=== PATIENT | male | born 1965 | race Caucasian/White ===

== ENCOUNTER 2021-06-13 09:58 | Outpatient (RCR) | payer OTHER, SELFPAY ==
--- NOTE | 2021-06-21 13:35 | HP.FCE ---
Floor (Occasional 1-33% of Day): 70# Floor (Frequent 34-66% of Day): 35# Floor (Constant 67-100% of Day): NA Floor PDL: Medium-Heavy Knee (Occasional 1-33% of Day): 75# Knee (Frequent 34-66% of Day): 38# Knee (Constant 67-100% of Day): NA Knee PDL: Medium-Heavy Waist (Occasional 1-33% of Day): 60# Waist (Frequent 34-66% of Day): 30# Waist (Constant 67-100% of Day): NA Waist PDL: Medium Shoulder (Occasional 1-33% of Day): 60# Shoulder (Frequent 34-66% of Day): 30# Shoulder (Constant 67-100% of Day): NA Shoulder PDL: Medium Overhead (Occasional 1-33% of Day): 40# Overhead (Frequent 34-66% of Day): 20# Overhead (Constant 67-100% of Day): NA Overhead PDL: Light-Medium Comments: pain increase with activity Bending: Frequent Ability (34-66% of day) Squatting: Frequent Ability (34-66% of day) Kneeling: Occasional Ability (1-33% of day) Reaching out: Frequent Ability (34-66% of day) Reaching up: Frequent Ability (34-66% of day) Sitting: Frequent Ability (34-66% of day) Walking: Frequent Ability (34-66% of day) Standing: Frequent Ability (34-66% of day) Duration Sedentary Sedentary Light Light Light Medium Medium Medium Heavy Very Heavy Heavy Occasional (0-33% of day) Frequent (34-66% of day) Constant (67-100% of day) 10 # Negligible Negligible 15 # 8 # Negligible 20 # 10# Negli. 35 # 18 # 7 # 50 # 25 # 10 # 75 # 100 # >100 # 38 # 50 # >50 # 15 # 20 # >20 # Weight:: 88.451 kg Hand Dominance: right Medical History Including Restrictions: Pt states he was in good health until about a year or year and a half ago when he was dx with COPD. pt dx with COPD about a year and a half ago and smokes and also smokes-. pt dx with generalized osteoarthrosis also dx about a year and a half a go-. pt does not exercise on a regular basis Diagnoses: COPD. Reflux. OA Symptoms: Back pain. wheezing Pain: pt reports back pain 4-6 pt takes Meloxicam 15 MG 1x a day. Gemma pain scale =21/78. Interpretation: ? minimum pain score: 0 (would not be seen in a person with true pain). ? maximum pain score: 78. ? The higher the pain score the greater the pain. References: Gemma Daniel. The Gemma Pain Questionnaire: Major properties and scoring methods. Pain. 1975;. 1: 277-299. Dominic Kessler. The Lao counterpart to Gemma Pain Questionnaire. Pain. 1988; 32: 251-25 Work History: Pt states he was working for [employer] for about a year and a half- pt states he lost this job when the pandemic started. 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 pt stated he thinks lifting requirement was about 30#. pt states prior to this position he worked for [employer]. pt states he had this job for over 4 years maybe closer to 6 years. [employer]. 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 pt states he had to lift about 50#. 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 pt states he left this position for more income at [employer] Behavioral: pt was cooperative throughout session- ADLS: Pt lives with his and son age 27 in a one story home with 1 entry- pt states he has no difficulty getting in or out of is home- pt states he has a tub shower and is IND. with his bathing and dressing tasks. pt states he does the dishes- pt states between him and his son take care of their acre lot. pts works outside of home and she does the cooking, cleaning and laundry- pt states does the grocery shopping. pt does drive IND. Physical Examination: Sp02 98. heart rate 70 ROM: pt demo ROM all WNL Strength: MMT grossly throughout 4+/5. bilateral hip flex at 4/5. bilateral quad/hamstring MT 5/5. pt demo good functional strength grossly throughout Right Tipple Oiler Strength Average: 61.66 Right Tipple Oiler Strength Percentile: 4.8% Left Tipple Oiler Strength Average: 75.00 Left Tipple Oiler Strength Percentile: 21% Right Lateral Pinch Average: 12.00 Right Lateral Pinch Percentile: <10% Left Lateral Pinch Average: 11.33 Left Lateral Pinch Percentile: <10% Right Tripod Pinch Average: 10.00 Right Tripod Pinch Percentile: <10% Left Tripod Pinch Average: 10.00 Left Tripod Pinch Percentile: <10% Sensation: denies Fine Motor: 9 hole-peg testing. right 24. 10sec. =25% for age group. left 25.60 sec. = 25% for age group Balance: Pt demo with normal to good balance- no noted loss of balance during assessment. Bending: PT demo the ability to bend forward 3/3x, 10/10x and 10/10x rapidly. pt can bend forward on a frequent ability Squatting: pt demo the ability to squat 3/3x, 10/10x and 10/10x rapidly. pt did report legs feeling weak like jello. pt can squat on a frequent ability Kneeling: pt demo the ability to kneel 3/3x,10/10x and 10/10 rapidly. pt heart rate at 108 , spO2 96. pt coughing and c/o SOB. spO2 99. heart rate 112. pt can kneel on occasional ability Reaching out/up: pt demo the ability to reach up/out 3/3x, 10/10x and 10/10x rapidly. pt can reach out/up on frequent ability Walking: pt ambulate 15 min with reciprocal gait pattern. Pt heart rate 106-78 and SpO2 was at 99- no noted SOB. pt can ambulate on a frequent ability Standing: pt demo standing for 8 min with no apparent discomfort or expressed discomfort - pt can stand on a frequent ability. Sitting: pt demo the ability to sit for 45 min with no expressed or apparent- pt can sit on a frequent ability Climbing Stairs: pt demo the ability to ascend and descend 10 steps with a reciprocal step pattern and no use of handrail Floor Lift: pt demo the ability to lift 70# maximally from this level. pt demo good lifting mechanics. Knee Lift: pt demo the ability to lift 75# maximally from this level. pt demo good lifting mechanics. Waist Lift: pt demo the ability to lift 60# maximally from this level. pt demo good lifting mechanics. Shoulder Lift: pt demo the ability to lift 60# maximally from this level. pt demo good lifting mechanics. Overhead Lift: pt demo the ability to lift 400# maximally from this level. pt demo good lifting mechanics. Carrying: pt demo the ability to carry 40# for 40 feet with good ability Comments: pt demo good lifting mechanics throughout session.
--- NOTE | 2021-06-21 13:36 | HP.OTFCE.D ---
FCE D/C Summary - Discharge MUSA VICKERS was seen for a one time visit for an FCE on 06/13/21 and is discharged.
== END 2021-06-13 19:00 | disposition home or self-care (01) ==
LOC: OT 09:58
PROVIDERS: PCP Internal Medicine; Referring Provider Internal Medicine; Visit Provider Internal Medicine
DX: M15.9 Polyosteoarthritis, unspecified (principal); J44.9 Chronic obstructive pulmonary disease, unspecified
CPT/HCPCS: 97750